=== PATIENT | female | born 1945 | race Caucasian/White ===

== ENCOUNTER 2016-11-16 14:34 | Outpatient (CLI) | payer MEDICARE | END 2016-11-16 14:35 | disposition home or self-care (01) | DX: Z12.31 Encounter for screening mammogram for malignant neoplasm of breast (principal); Z80.3 Family history of malignant neoplasm of breast ==

== ENCOUNTER 2016-11-16 14:34 | Outpatient (CLI) | payer MEDICARE | END 2016-11-16 14:35 | disposition home or self-care (01) | DX: M85.88 Other specified disorders of bone density and structure, other site (principal) ==

== ENCOUNTER 2018-05-25 12:50 | Outpatient (CLI) | payer MEDICARE ==
--- NOTE | 2018-05-25 17:40 | Mammography Report ---
Reason: BILAT DIAGNOSTIC WITH VIRGIE FOR BILAT LUMPS Procedure Date: 05/25/2018 Accession Number: [id number] / [id number] Procedure: WILLOW - Diagnostic Bilat 3D Virgie CPT Code: 53144 FULL RESULT: EXAM: Diagnostic Bilat 3D Virgie DATE: 05/25/2018 2:27 PM CLINICAL HISTORY: Bilateral painful palpable lumps. TECHNIQUE: Bilateral 3-D tomographic and 2-D images in CC and MLO projection were obtained. COMPARISON: 11/16/2016, 11/01/2015, 10/24/2014. FINDINGS: The breasts demonstrate heterogeneously dense fibroglandular parenchyma bilaterally. Tomogram reveals the area marked with a BB in the right breast to contain a centrally hyperdense and peripherally hypodense well-demarcated 1 cm lesion in the right lower outer breast at the 8:00 position approximately 5.4 cm from the nipple. The appearance is nonspecific. In the left breast the marker of the palpable lump does not correspond to mammographic finding. IMPRESSION: Based on the ultrasound findings performed at the same time, biopsy is recommended. RECOMMENDATION: Biopsy BIRADS CATEGORY 4 suspicious STANDARD QUALIFYING STATEMENTS: 1. This examination was not reviewed with the aid of Computer-Aided Detection (CAD). 2. A negative or benign imaging report should not delay biopsy if clinically suspicious findings are present. Consider surgical consultation if warrented. More than 5% of cancers are not identified by imaging. 3. Dense breasts may obscure an underlying neoplasm. 4. This examination was reviewed with the aid of 3D imaging (tomography).
--- NOTE | 2018-05-25 17:43 | Ultrasound Report ---
Reason: RIGHT BREAST Procedure Date: 05/25/2018 Accession Number: [id number] / [id number] Procedure: US - Breast Unilateral Limited CPT Code: FULL RESULT: EXAM: Breast Unilateral Limited, Breast Unilateral Limited DATE: 05/25/2018 3:59 PM CLINICAL HISTORY: Painful bilateral palpable breast lumps. COMPARISON: Correlation is made to the mammographic evaluation performed the same day. FINDINGS AND TECHNIQUE: Focused breast ultrasound with limited use of color Doppler was performed of the palpable areas in the right and left breast. In the right breast a taller than wide 0.8 x 0.4 x 0.6 cm shadowing heterogeneous hyperechoic lesion without vascularity by color Doppler is identified. In the left breast a wider than tall well demarcated hypoechoic lesion measuring 0.5 x 0.8 x 0.4 cm is identified. IMPRESSION: BI-RADS 4, suspicious findings. Biopsy is recommended. RADIA
--- NOTE | 2018-05-25 17:43 | Ultrasound Report ---
Reason: LEFT BREAST Procedure Date: 05/25/2018 Accession Number: [id number] / [id number] Procedure: US - Breast Unilateral Limited CPT Code: FULL RESULT: EXAM: Breast Unilateral Limited, Breast Unilateral Limited DATE: 05/25/2018 3:59 PM CLINICAL HISTORY: Painful bilateral palpable breast lumps. COMPARISON: Correlation is made to the mammographic evaluation performed the same day. FINDINGS AND TECHNIQUE: Focused breast ultrasound with limited use of color Doppler was performed of the palpable areas in the right and left breast. In the right breast a taller than wide 0.8 x 0.4 x 0.6 cm shadowing heterogeneous hyperechoic lesion without vascularity by color Doppler is identified. In the left breast a wider than tall well demarcated hypoechoic lesion measuring 0.5 x 0.8 x 0.4 cm is identified. IMPRESSION: BI-RADS 4, suspicious findings. Biopsy is recommended. RADIA
== END 2018-05-25 12:51 | disposition home or self-care (01) ==
LOC: DI 12:50
PROVIDERS: ATTEND Family Medicine
DX: N63.20 Unspecified lump in the left breast, unspecified quadrant (principal); N63.10 Unspecified lump in the right breast, unspecified quadrant; Z12.39 Encounter for other screening for malignant neoplasm of breast
CPT/HCPCS: 76642; 77062

== ENCOUNTER 2021-06-10 11:45 | Outpatient (CLI) | payer MEDICARE | END 2021-06-10 23:59 | disposition home or self-care (01) | LOC: LAB.S 11:45 | PROVIDERS: ATTEND Emergency Medicine | DX: C44.721 Squamous cell carcinoma of skin of unspecified lower limb, including hip (principal) | CPT/HCPCS: 87070; 87205 ==

== ENCOUNTER 2022-06-15 09:43 | Outpatient (CLI) | payer MEDICARE ==
--- NOTE | 2022-06-15 12:05 | DEXA Report ---
PROCEDURE: Dexa Spine and/or Hip INDICATIONS: POSTMENOPAUSAL TECHNIQUE: Dual energy x-ray absorptiometry (DXA) was performed on a [employer] System. Regions measur ed are the AP Spine, femoral neck, and if needed forearm. COMPARISON: 10/09/2015. FINDINGS: Lumbar Spine: Bone Mineral Density 1.209 g/cm/cm,T score 0.2. There is interval 4.7% increase in total lumbar sp ine bone mineral density. Left Hip: Bone Mineral Density 0.994 g/cm/cm,T score -0.1. There is interval 1.4% decrease in total left hip b one mineral density. Left Femoral Neck: Bone Mineral Density 0.850 g/cm/cm, T score -1.4. (T score greater or equal to -1.0: NORMAL) (T score from -1.1 to -2.4: OSTEOPENIA) (T score less than or equal to -2.5 to: OSTEOPOROSIS) Impression: Osteopenia. Patients with diagnosis of osteoporosis or osteopenia should have regular bone mineral density assess ment. For those eligible for Medicare, routine testing is allowed once every 2 years. Testing frequ ency can be increased for patients who have rapidly progressing disease or for those who are receivin g medical therapy to restore bone mass. Reviewed by: Asim Canas MD on 06/15/2022 12:03 PM PDT Approved by: Asim Canas MD on 06/15/2022 12:03 PM PDT Station ID: [id number]
== END 2022-06-15 09:44 | disposition home or self-care (01) ==
LOC: DI 09:43
PROVIDERS: ATTEND Nurse Practitioner Family
DX: M85.88 Other specified disorders of bone density and structure, other site (principal)

== ENCOUNTER 2024-03-31 11:34 | Outpatient (CLI) | payer MEDICARE ==
--- NOTE | 2024-04-01 19:53 | XRAY Report ---
PROCEDURE: Ribs 3V BL INDICATIONS: RIB PAIN TECHNIQUE: 2 views of the ribs were obtained. COMPARISON: None FINDINGS: Surgical changes and devices: None. Bones and chest wall: No fractures or dislocations. No suspicious bony lesions. Overlying soft tis sues appear unremarkable. Convex right thoracolumbar scoliosis Lungs and pleura: The visualized lung appears clear. Chronic interstitial changes noted. Atheroscler otic vascular calcification noted in the aortic arch. No pleural effusions or pneumothorax are visibl e. IMPRESSION: Unremarkable without evidence of fracture or intrinsic lesion. Thoracolumbar dextroscoliosis Reviewed by: Kiran Pritchard MD on 04/01/2024 6:51 PM AKANN Approved by: Kiran Pritchard MD on 04/01/2024 6:51 PM AKDT Station ID: [id number]
== END 2024-03-31 11:35 | disposition home or self-care (01) ==
LOC: DI.S 11:34
DX: R07.81 Pleurodynia (principal)